=== PATIENT | female | born 1955 | race Hispanic/Latino ===

== ENCOUNTER 2020-09-08 03:41 | Observation (INO) | payer MEDICARE ==
[~2020-09-08] VITALS: Ht 160 cm; Wt 79.4 kg
[2020-09-08 04:21] LABS: BASOPHILS % 0.2 % (0.0-1.0); EOSINOPHILS % 0.3 % (0.0-6.0); HEMATOCRIT 37.4 % (34.2-44.1); HEMOGLOBIN 12.4 g/dL (12.0-16.0); LYMPHOCYTES # (AUTO) 0.4 (1.0-3.2); LYMPHOCYTES % 3.7 % (18.0-39.1); MEAN CORPUSCULAR HEMOGLOBIN 29.6 pg (28-32); MEAN CORPUSCULAR HGB CONC 33.2 g/dL (31-35); MEAN CORPUSCULAR VOLUME 89.3 fL (81-99); MONOCYTES # (AUTO) 0.2 (0.2-0.8); MONOCYTES % 1.4 % (4.4-11.3); NEUTROPHILS # (AUTO) 10.8 (2.1-6.9); PLATELET COUNT 161 x10e3/uL (140-360); RED BLOOD COUNT 4.19 x10e6/uL (3.6-5.1); RED CELL DISTRIBUTION WIDTH 12.8 % (11.7-14.4)
[2020-09-08 04:32] LABS: CLARITY,URINE SL CLOUDY (CLEAR); COLOR,URINE AMBER (YELLOW); KETONES,URINE 1+ (NEGATIVE); LEUKOCYTE ESTERASE ,URINE TRACE (NEGATIVE); NITRITE,URINE NEGATIVE (NEGATIVE); PROTEIN,URINE DIPSTICK 2+ (NEGATIVE); URINE UROBILINOGEN >=8 mg/dL (0.2 - 1)
[2020-09-08 04:38] LABS: BACTERIA,URINE MODERATE /HPF; RBC,URINE 0-5 /HPF (0-5)
[2020-09-08 04:39] LABS: AMORPHOUS SEDIMENT,URINE FEW (FEW); EPITHELIAL CELLS,URINE MODERATE /LPF
[2020-09-08 04:42] LABS: ALBUMIN 3.9 g/dL (3.5-5.0); ALBUMIN/GLOBULIN RATIO 1.1 (0.8-2.0); ANION GAP 15.3 mmol/L (8-16); CALCIUM 8.8 mg/dL (8.4-10.2); CREATININE, SERUM 0.96 mg/dL (0.57-1.11); POTASSIUM 3.3 mmol/L (3.5-5.1)
[2020-09-08 04:48] LABS: CREATINE KINASE MB 1.5 ng/mL (0-5.0)
[2020-09-08] MEDS ORDERED: CEFTRIAXONE SOD 1 GM/50 ML BAG IV ONE (05:30)
[2020-09-08] MEDS ORDERED: CEFTRIAXONE SOD 1 GM in SODIUM CHLORIDE 0.9% 50ML 50 ML IV ONE (05:45)
[2020-09-08] MEDS ORDERED: ACETAMINOPHEN 325 MG TAB PO PRN (07:15)
[2020-09-08] MEDS ORDERED: DOCUSATE SODIUM 100 MG CAP PO PRN (07:15)
[2020-09-08] MEDS ORDERED: ZOLPIDEM TARTRATE 5 MG TAB PO PRN (07:15)
[2020-09-08 14:00] VITALS: BP 135/82
[2020-09-08] MEDS: SODIUM CHLORIDE 0.9% 1000ML 1,000 ML IV SCH (14:05)
[2020-09-08 20:00] VITALS: BP 117/57
[2020-09-08 20:24] VITALS: BP 135/82
[2020-09-09] VITALS (9 sets, daily range): BP systolic 112–138; BP diastolic 51–80
[2020-09-09] MEDS: SODIUM CHLORIDE 0.9% 1000ML 1,000 ML IV SCH ×2 (03:54→19:38)
[2020-09-09 05:55] LABS: BASOPHILS % 0.3 % (0.0-1.0); EOSINOPHILS # (AUTO) 0.1 (0.0-0.4); EOSINOPHILS % 1.3 % (0.0-6.0); HEMATOCRIT 32.4 % (34.2-44.1); HEMOGLOBIN 10.9 g/dL (12.0-16.0); LYMPHOCYTES # (AUTO) 0.3 (1.0-3.2); LYMPHOCYTES % 4.6 % (18.0-39.1); MEAN CORPUSCULAR HEMOGLOBIN 29.7 pg (28-32); MEAN CORPUSCULAR HGB CONC 33.6 g/dL (31-35); MEAN CORPUSCULAR VOLUME 88.3 fL (81-99); MONOCYTES # (AUTO) 0.1 (0.2-0.8); NEUTROPHILS # (AUTO) 6.6 (2.1-6.9); NEUTROPHILS % 92.5 % (38.7-80.0); PLATELET COUNT 136 x10e3/uL (140-360); RED BLOOD COUNT 3.67 x10e6/uL (3.6-5.1); RED CELL DISTRIBUTION WIDTH 13.1 % (11.7-14.4)
[2020-09-09 06:19] LABS: ANION GAP 11.9 mmol/L (8-16); CALCIUM 7.9 mg/dL (8.4-10.2); CREATININE, SERUM 1.01 mg/dL (0.57-1.11); POTASSIUM 3.9 mmol/L (3.5-5.1)
[2020-09-09] MEDS ORDERED: CEFTRIAXONE SOD 1 GM/50 ML BAG IV SCH (07:15)
[2020-09-09 08:53] LABS: BAND NEUTROPHILS % (MANUAL) 2 %; LYMPHOCYTES % (MANUAL) 9 % (19-48); NEUTROPHILS % (MANUAL) 89 % (40-74)
[2020-09-09 08:54] LABS: PLATELET ESTIMATE ADEQUATE; PLATELET MORPHOLOGY COMMENT NORMAL
[2020-09-09] MEDS: CEFTRIAXONE SOD 1 GM in SODIUM CHLORIDE 0.9% 50ML 50 ML IV SCH (09:49)
[2020-09-10] VITALS (7 sets, daily range): BP systolic 133–148; BP diastolic 61–70
[2020-09-10] MEDS: SODIUM CHLORIDE 0.9% 1000ML 1,000 ML IV SCH (04:36)
[2020-09-10] MEDS ORDERED: METOPROLOL TARTRATE 25 MG TAB PO SCH (07:30)
[2020-09-10] MEDS: CEFTRIAXONE SOD 1 GM in SODIUM CHLORIDE 0.9% 50ML 50 ML IV SCH (10:00)
== END 2020-09-10 11:26 | disposition home or self-care (01) ==
LOC: ER 03:55 → ERHOLD 06:23 → MED/SURG3 13:26
PROVIDERS: ADMIT Internal Medicine; ATTEND Internal Medicine
DX: N39.0 Urinary tract infection, site not specified (principal); E87.6 Hypokalemia; N17.9 Acute kidney failure, unspecified; Z20.822 Contact with and (suspected) exposure to COVID-19
CPT/HCPCS: 36415 ×2; 70450; 71045; 80048; 80053; 81001; 82550; 82553; 84132; 84484; 85025 ×2; 87086; 93005; 93306; 93880; 97161; 99284; G0378 ×3; J0696 ×3; J7030 ×3; U0002

== ENCOUNTER 2021-06-11 21:07 | Emergency (ER) | payer OTHER ==
[~2021-06-11] VITALS: Ht 160 cm; Wt 79.4 kg
[2021-06-11] MEDS ORDERED: CEPHALEXIN500 MG PO (21:51)
[2021-06-11] MEDS ORDERED: SILVER NITRATE SWABS ONE ×2 (21:52→21:55)
[2021-06-11] MEDS ORDERED: TETANUS/DIPHTHERIA TOX ADULT 0.5 ML SYR ONE (21:53)
[2021-06-11] MEDS ORDERED: TRAMADOL HCL 50 MG TAB ONE (21:57)
[2021-06-11] MEDS ORDERED: TRAMADOL HCL 50 MG TAB PO ONE (22:15)
[2021-06-11] MEDS ORDERED: SILVER NITRATE SWABS TOP ONE (22:15)
[2021-06-11] MEDS ORDERED: TETANUS/DIPHTHERIA TOX ADULT 0.5 ML SYR IM ONE (22:15)
== END 2021-06-11 22:33 | disposition home or self-care (01) ==
LOC: FSED 21:16
DX: S61.215A Laceration without foreign body of left ring finger without damage to nail, initial encounter (principal); W45.8XXA Other foreign body or object entering through skin, initial encounter; Y92.89 Other specified places as the place of occurrence of the external cause
CPT/HCPCS: 90471; 90714; 99283